=== PATIENT | female | born 1995 | race Caucasian/White ===

== ENCOUNTER 2017-10-14 16:48 | Emergency (ER) | payer BC ==
[2017-10-14 17:03] VITALS: BP 122/66; PULSE 85; RESP 20; TEMP 98.9
[2017-10-14] MEDS ORDERED: DEXAMETHASONE SOD PHOSPHATE 10 MG/ML 1 ML VIAL IM STA (17:12)
--- NOTE | 2017-10-14 17:22 | ED ---
ENT HPI - General Chief complaint: ENT Stated complaint: Tonsils Swelling Time Seen by Provider: 10/14/17 17:04 Source: patient, RN notes reviewed Mode of arrival: ambulatory Limitations: no limitations - History of Present Illness Initial comments: This is a 22-year-old female presents to the emergency department with chief complaint of swollen tonsils. Patient states that 2 weeks ago she was diagnosed with strep throat and finished a course of amoxicillin. She states that her symptoms did not improve and 2 days ago was diagnosed with strep throat and mononucleosis. She states that she is currently taking azithromycin. Patient presents to the emergency department complaining of increased swelling to her tonsils and increasing white spots. Patient states that she has difficulty swallowing because they are so swollen. She denies any difficulty breathing. Denies any fevers or chills, abdominal pain, nausea or vomiting. - Related Data Home Medications Medication Instructions Recorded Confirmed Azithromycin [Zithromax Z-pack] See Taper PO DIRECTED 10/14/17 10/14/17 Control 1 tab PO DAILY 10/14/17 10/14/17 Allergies Allergy/AdvReac Type Severity Reaction Status Date / Time No Known Allergies Allergy Verified 10/14/17 17:13 Review of Systems ROS Statement: Those systems with pertinent positive or pertinent negative responses have been documented in the HPI. ROS Other: All systems not noted in ROS Statement are negative. Past Medical History Additional Past Medical History / Comment(s): strep and mono History of Any Multi-Drug Resistant Organisms: None Reported Past Surgical History: No Surgical Hx Reported Past Psychological History: No Psychological Hx Reported Smoking Status: Never smoker Past Alcohol Use History: None Reported Past Drug Use History: None Reported General Exam - General Exam Comments Initial Comments: General: Awake and alert, well-developed; in no apparent distress. Parents are at bedside. HEENT: Head atraumatic, normocephalic. Pupils are equal, round and reactive to light. Extraocular movements intact. Oropharynx moist with bilateral tonsillar swelling and exudates. Tonsils are symmetrical and are almost touching with full opening of the mouth. Neck: Supple. Normal ROM. Tender anterior and posterior cervical lymphadenopathy. Cardiovascular: Regular rate and rhythm. No murmurs, rubs or gallops. Chest symmetrical. Respiratory: Lungs clear to auscultation bilaterally. No wheezes, rales or rhonchi. Normal respiratory effort with no use of accessory muscles. Musculoskeletal: Normal ROM, no tenderness bilateral upper and lower extremities. Ambulating normally. Skin: [place], warm and dry without rashes or lesions. Neurological: Alert and oriented x3. CN II-XII grossly intact. Speech is fluent and answers are appropriate. No focal neuro deficits. Psychiatric: Normal mood and affect. No overt signs of depression or anxiety noted. Limitations: no limitations (Patient is in no acute distress. Temperature 98.9. Pulse 85. Respirations 20. Blood pressure 122/66. Pulse ox 97% on room air.) Course Vital Signs 10/14/17 17:01 Temperature 98.9 F Pulse Rate 85 Respiratory 20 Rate Blood Pressure 122/66 O2 Sat by Pulse 97 Oximetry Medical Decision Making - Medical Decision Making This is a 22-year-old female who was recently diagnosed with mononucleosis and strep throat the presents to the emergency department with chief complaint of tonsillar swelling. Patient does have symmetrical bilateral tonsillar enlargement with exudates. Vital signs are stable and patient is in no respiratory distress. She states she does have difficulty swallowing. She was given an IM dose of Decadron while in the emergency department. She is in no acute distress and will be discharged home. Return parameters were discussed. She is in agreement with plan and voices understanding. All questions were answered. Disposition Clinical Impression: Streptococcal sore throat, Infectious mononucleosis Disposition: HOME SELF-CARE Condition: Good Instructions: Mononucleosis (ED), Strep Throat (ED) Additional Instructions: Please follow up with primary care provider within 1-2 days. Return to emergency department if symptoms should worsen or any concerns arise. Referrals: Alana Blackwood MD [Primary Care Provider] - 1-2 days Time of Disposition: 17:21
== END 2017-10-14 17:28 | disposition home or self-care (01) ==
LOC: EC 16:48
DX: J02.0 Streptococcal pharyngitis (principal); B27.90 Infectious mononucleosis, unspecified without complication; Z79.3 Long term (current) use of hormonal contraceptives
CPT/HCPCS: 99283; 96372; J1100